=== PATIENT | male | born 1995 | race Caucasian/White ===

== ENCOUNTER 2019-09-26 10:15 | Emergency (ER) | payer MEDICAID ==
[~2019-09-26] VITALS: Ht 177.8 cm; Wt 96.0 kg
[2019-09-26 10:17] VITALS: BP 143/70
[2019-09-26] MEDS ORDERED: dexamethasone sod phosphate 10mg/ml inj PO STA (11:00)
== END 2019-09-26 11:37 | disposition home or self-care (01) ==
LOC: ER 10:15
DX: J02.8 Acute pharyngitis due to other specified organisms (principal); B97.89 Other viral agents as the cause of diseases classified elsewhere
CPT/HCPCS: 87081; 87880; 99283; J1100

== ENCOUNTER 2019-09-27 09:54 | Emergency (ER) | payer MEDICAID ==
[~2019-09-27] VITALS: Ht 182.9 cm; Wt 96.0 kg
[2019-09-27 09:59] VITALS: BP 135/84
--- NOTE | 2019-09-27 10:24 | NUR ---
awaiting ed provider.
--- NOTE | 2019-09-27 11:50 | NUR ---
patient eloped at this time,Jacqueline Montana and Kat MCDUFFIE made aware.
== END 2019-09-27 12:01 | disposition left against medical advice (07) ==
LOC: ER 09:56
DX: S93.401A Sprain of unspecified ligament of right ankle, initial encounter (principal); S90.821A Blister (nonthermal), right foot, initial encounter; F17.200 Nicotine dependence, unspecified, uncomplicated; F15.90 Other stimulant use, unspecified, uncomplicated; X58.XXXA Exposure to other specified factors, initial encounter; Y93.89 Activity, other specified; Y92.89 Other specified places as the place of occurrence of the external cause; Y99.8 Other external cause status
CPT/HCPCS: 73610; 99284

== ENCOUNTER 2021-06-05 17:15 | Emergency (ER) | payer MEDICAID ==
[~2021-06-05] VITALS: Ht 177.8 cm; Wt 100.0 kg
[2021-06-05] MEDS ORDERED: diphenhydrAMINE 50 mg/ml inj IM ONE (17:50)
[2021-06-05] MEDS ORDERED: metoclopramide 5 mg/ml inj IM ONE (17:50)
[2021-06-05] MEDS ORDERED: ketorolac trometh. 30mg/ml inj. IM ONE (17:50)
--- NOTE | 2021-06-05 18:35 | NUR ---
Assumed care of patient, report recieved from Mindi BRYSON. Light turned off for patient comfort after recieving IM medications.
[2021-06-05 18:58] VITALS: BP 142/86
== END 2021-06-05 19:04 | disposition home or self-care (01) ==
LOC: ER 17:16
DX: J06.9 Acute upper respiratory infection, unspecified (principal); F17.210 Nicotine dependence, cigarettes, uncomplicated; F15.10 Other stimulant abuse, uncomplicated
CPT/HCPCS: 96372; 99284; J1200; J1885; J2765

== ENCOUNTER 2021-06-19 20:03 | Emergency (ER) | payer MEDICAID ==
[~2021-06-19] VITALS: Ht 177.8 cm; Wt 102.3 kg
[2021-06-19 20:06] VITALS: BP 131/78
[2021-06-19] MEDS ORDERED: CEPH250T PO (20:50)
[2021-06-19] MEDS ORDERED: SULF1TAB49 PO (20:50)
[2021-06-19 21:01] LABS: BASOPHILS # (AUTO) 0.1 X10'3 (0-0.2); BASOPHILS % (AUTO) 0.8 % (0-1); EOSINOPHILS # (AUTO) 0.1 X10'3 (0-0.9); EOSINOPHILS % (AUTO) 0.8 % (0-6); HEMATOCRIT 39.4 % (42.0-52.0); HEMOGLOBIN 13.3 g/dl (14.0-17.9); LYMPHOCYTES % (AUTO) 20.9 % (21-51); MEAN CORPUSCULAR HEMOGLOBIN 29.2 PG (27.0-31.0); MEAN CORPUSCULAR HGB CONC 33.8 g/dL (33.0-36.5); MEAN CORPUSCULAR VOLUME 86.4 FL (78-98); MEAN PLATELET VOLUME 7.7 FL (7.4-10.4); MONOCYTES # (AUTO) 1.1 X10'3 (0-0.9); MONOCYTES % (AUTO) 7.9 % (2-12); NEUTROPHILS % (AUTO) 69.6 % (42-75); PLATELET COUNT 284 X10'3 (140-440); RED BLOOD COUNT 4.56 X10'6 (4.70-6.10); RED CELL DISTRIBUTION WIDTH 12.6 % (11.5-14.5); WHITE BLOOD COUNT 14.4 X10'3 (4.5-11.0)
== END 2021-06-19 21:13 | disposition home or self-care (01) ==
LOC: ER 20:03
DX: L03.116 Cellulitis of left lower limb (principal); L03.115 Cellulitis of right lower limb; F15.90 Other stimulant use, unspecified, uncomplicated; Z86.14 Personal history of Methicillin resistant Staphylococcus aureus infection; Z79.2 Long term (current) use of antibiotics; Z79.899 Other long term (current) drug therapy
CPT/HCPCS: 36415; 83605; 85025; 99283

== ENCOUNTER 2021-11-04 21:40 | Emergency (ER) | payer MEDICAID ==
[~2021-11-04] VITALS: Ht 177.8 cm; Wt 105.6 kg
[2021-11-04 21:56] VITALS: BP 136/92
== END 2021-11-05 01:51 | disposition left against medical advice (07) ==
LOC: ER 21:41
DX: M79.641 Pain in right hand (principal); Z53.21 Procedure and treatment not carried out due to patient leaving prior to being seen by health care provider

== ENCOUNTER 2022-11-11 22:24 | Emergency (ER) | payer MEDICAID ==
[~2022-11-11] VITALS: Ht 177.8 cm; Wt 115.9 kg
[2022-11-11 22:36] VITALS: BP 116/83
== END 2022-11-12 01:38 | disposition left against medical advice (07) ==
LOC: ER 22:25
DX: R05.9 Cough, unspecified (principal); Z53.21 Procedure and treatment not carried out due to patient leaving prior to being seen by health care provider